=== PATIENT | male | born 1965 | race African-American/Black ===

== ENCOUNTER 2017-06-17 10:01 | Inpatient (IN) | payer MEDICAID ==
[~2017-06-17] VITALS: Ht 193 cm; Wt 122.5 kg
[~2017-06-17 10:01] MED LIST: AMLO2.5T45 PO; ASPI-1158 PO; ATOR-2 PO; BACL-141 PO; CETI10TA6 PO; FAMO20TA8 PO; FURO20TA4 PO; ISOS60TA4 PO; METO-396 PO; MIRT15TA6 PO; NITR100C PO; SPIR25TA4 PO; WARF5TAB76 PO
[2017-06-17 10:57] LABS: BASOPHILS % 0.6 % (0.0-2.0); EOSINOPHILS % 1.8 % (0.0-5.0); HEMATOCRIT. 46.1 % (42.0-52.0); HEMOGLOBIN. 15.3 g/dL (14.0-18.0); LYMPHOCYTES % 23.3 % (20.0-50.0); MEAN CORPUSCULAR VOLUME 81.6 fL (80.0-94.0); MEAN PLATELET VOLUME 8.1 fl (7.4-10.4); MONOCYTES % 7.6 % (2.0-8.0); NEUTROPHILS % 66.7 % (40.0-76.0); PLATELET 181 x1000/uL (130-400); RED BLOOD CELL COUNT 5.65 mill/uL (4.7-6.1); RED CELL DISTRIBUTION WIDTH 14.4 % (11.6-14.6)
[2017-06-17 11:02] LABS: CLARITY URINE CLEAR (CLEAR); COLOR URINE YELLOW (YELLOW); GLUCOSE URINE NEGATIVE (NEGATIVE); KETONES URINE TRACE (NEGATIVE); LEUKOCYTE ESTERASE URINE NEGATIVE (NEGATIVE); NITRITE URINE NEGATIVE (NEGATIVE); OCCULT BLOOD URINE 2+ (NEGATIVE); PROTEIN URINE NEGATIVE (NEGATIVE); SPECIFIC GRAVITY URINE 1.021 (1.005-1.030)
[2017-06-17 11:05] LABS: CHLORIDE 105 mEq/L (98-107)
[2017-06-17 11:12] LABS: CARBON DIOXIDE 24 mEq/L (21-32)
[2017-06-17 11:18] LABS: INR 3.6
[2017-06-17 11:19] LABS: TROPONIN I 0.42 ng/mL (0.00-0.04)
[2017-06-17 11:21] LABS: PARTIAL THROMBOPLASTIN TIME 75.8 sec (23.4-31.0)
[2017-06-17 11:34] LABS: *AMPHETAMINES SCREEN URINE NEGATIVE (NEGATIVE); *BARBITURATES SCREEN URINE NEGATIVE (NEGATIVE); *BENZODIAZEPINES SCREEN URINE NEGATIVE (NEGATIVE); *COCAINE SCREEN URINE NEGATIVE (NEGATIVE); CANNABINOID URINE SCREEN NEGATIVE (NEGATIVE); METHADONE URINE SCREEN NEGATIVE (NEGATIVE); OPIATES URINE SCREEN NEGATIVE (NEGATIVE); PHENCYCLIDINE URINE SCREEN NEGATIVE (NEGATIVE)
[2017-06-17] MEDS ORDERED: CLONIDINE 0.1MG TABLET PO PRN (13:30)
[2017-06-17] MEDS ORDERED: CLONIDINE 0.2MG TABLET PO PRN (13:30)
[2017-06-17] MEDS ORDERED: DOCUSATE SODIUM 100MG CAPSULE PO PRN (14:15)
[2017-06-17] MEDS ORDERED: HYDROCODONE/ACETAMINOPHEN 5/325MG TABLET PO PRN (14:15)
[2017-06-17] MEDS ORDERED: ACETAMINOPHEN 325MG TABLET PO PRN (14:15)
[2017-06-17] MEDS ORDERED: GUAIFENESIN 200MG/10ML SUGAR FREE UDC PO PRN (14:15)
[2017-06-17] MEDS ORDERED: ONDANSETRON HCL 4MG/2ML VIAL IV PRN (14:15)
[2017-06-17] MEDS: AMLODIPINE 5MG TABLET PO SCH ×2 (15:52→21:00)
[2017-06-17 15:55] VITALS: BP 107/65
[2017-06-17 16:18] VITALS: BP 119/75
[2017-06-17] MEDS ORDERED: WARF6TAB22 PO (16:32)
[2017-06-17 17:30] VITALS: BP 119/68
[2017-06-17 18:00] VITALS: BP 117/56
[2017-06-17 20:00] VITALS: BP 101/69
[2017-06-17 22:00] VITALS: BP 121/74
[2017-06-18] VITALS (12 sets, daily range): BP systolic 104–133; BP diastolic 39–90
[2017-06-18 06:52] LABS: BASOPHILS % 0.4 % (0.0-2.0); EOSINOPHILS % 1.8 % (0.0-5.0); HEMATOCRIT. 40.6 % (42.0-52.0); HEMOGLOBIN. 13.4 g/dL (14.0-18.0); LYMPHOCYTES % 20.1 % (20.0-50.0); MEAN CORPUSCULAR HEMOGLOBIN 26.8 pg (28.0-32.0); MEAN PLATELET VOLUME 8.4 fl (7.4-10.4); MONOCYTES % 9.8 % (2.0-8.0); NEUTROPHILS % 67.9 % (40.0-76.0); PLATELET 180 x1000/uL (130-400); RED BLOOD CELL COUNT 5.01 mill/uL (4.7-6.1); RED CELL DISTRIBUTION WIDTH 14.4 % (11.6-14.6)
[2017-06-18 07:22] LABS: CARBON DIOXIDE 26 mEq/L (21-32); CHLORIDE 106 mEq/L (98-107); CREATINE KINASE 149 IU/L (39-308); CREATINE KINASE MB FRACTION 3.8 ng/mL (0.5-3.6); HDL CHOLESTEROL 46 mg/dL (40-59); LDL CHOLESTEROL 61 mg/dL (5-100)
[2017-06-18] MEDS: AMLODIPINE 5MG TABLET PO SCH ×2 (08:38→21:00)
[2017-06-18] MEDS: ASPIRIN 81MG EC TABLET PO SCH (08:47)
[2017-06-18 09:47] LABS: INR 3.3; PROTHROMBIN TIME 34.3 sec (9.4-11.6)
[2017-06-19] VITALS (11 sets, daily range): BP systolic 108–132; BP diastolic 54–90
[2017-06-19 06:57] LABS: BASOPHILS % 0.5 % (0.0-2.0); EOSINOPHILS % 2.4 % (0.0-5.0); HEMATOCRIT. 40.6 % (42.0-52.0); HEMOGLOBIN. 13.4 g/dL (14.0-18.0); LYMPHOCYTES % 18.9 % (20.0-50.0); MEAN CORPUSCULAR HEMOGLOBIN 26.5 pg (28.0-32.0); MEAN CORPUSCULAR VOLUME 80.2 fL (80.0-94.0); MEAN PLATELET VOLUME 8.5 fl (7.4-10.4); NEUTROPHILS % 68.2 % (40.0-76.0); PLATELET 172 x1000/uL (130-400); RED BLOOD CELL COUNT 5.06 mill/uL (4.7-6.1); RED CELL DISTRIBUTION WIDTH 14.2 % (11.6-14.6)
[2017-06-19 06:58] LABS: INR 2.2
[2017-06-19 07:33] LABS: CARBON DIOXIDE 24 mEq/L (21-32); CHLORIDE 103 mEq/L (98-107); CREATINE KINASE 89 IU/L (39-308); CREATINE KINASE MB FRACTION 0.9 ng/mL (0.5-3.6); HDL CHOLESTEROL 45 mg/dL (40-59); LDL CHOLESTEROL 64 mg/dL (5-100)
[2017-06-19 07:58] LABS: TROPONIN I 0.56 ng/mL (0.00-0.04)
[2017-06-19] MEDS: ASPIRIN 81MG EC TABLET PO SCH ×2 (09:00→17:13)
[2017-06-19] MEDS: AMLODIPINE 5MG TABLET PO SCH ×2 (09:00→21:00)
[2017-06-19] MEDS ORDERED: REGADENOSON 0.4 MG/5 ML IV SCH (10:15)
[2017-06-19] MEDS ORDERED: REGADENOSON 0.4 MG/5 ML IV ONE (15:24)
[2017-06-19] MEDS ORDERED: WARFARIN SODIUM 3MG TABLET PO NR (18:00)
[2017-06-20] VITALS (9 sets, daily range): BP systolic 108–128; BP diastolic 70–83
[2017-06-20 08:38] LABS: INR 1.5; PROTHROMBIN TIME 15.7 sec (9.4-11.6)
[2017-06-20] MEDS: ASPIRIN 81MG EC TABLET PO SCH (08:46)
[2017-06-20 08:47] LABS: CARBON DIOXIDE 25 mEq/L (21-32); CHLORIDE 104 mEq/L (98-107)
[2017-06-20] MEDS: AMLODIPINE 5MG TABLET PO SCH (08:47)
[2017-06-20 08:48] LABS: BASOPHILS % 0.4 % (0.0-2.0); EOSINOPHILS % 2.2 % (0.0-5.0); HEMATOCRIT. 40.1 % (42.0-52.0); HEMOGLOBIN. 13.4 g/dL (14.0-18.0); LYMPHOCYTES % 19.4 % (20.0-50.0); MEAN CORPUSCULAR VOLUME 80.8 fL (80.0-94.0); MEAN PLATELET VOLUME 7.7 fl (7.4-10.4); MONOCYTES % 10.1 % (2.0-8.0); NEUTROPHILS % 67.9 % (40.0-76.0); PLATELET 178 x1000/uL (130-400); RED BLOOD CELL COUNT 4.96 mill/uL (4.7-6.1); RED CELL DISTRIBUTION WIDTH 14.2 % (11.6-14.6)
[2017-06-20] MEDS ORDERED: ENOXAPARIN 100MG/ML SYR SUBCUT SCH (09:15)
[2017-06-20] MEDS ORDERED: WARFARIN SODIUM 3MG TABLET PO SCH (18:00)
== END 2017-06-20 16:20 | DRG 190 ==
LOC: ER 11:04 → 3WST 12:03 → EDBEDREQ 12:05 → EDBEDREQTM 12:06 → ENRESERV 12:32
PROVIDERS: ADMIT Hospitalist; ATTEND Hospitalist
DX: I21.4 Non-ST elevation (NSTEMI) myocardial infarction (principal); E87.2 Acidosis; D68.59 Other primary thrombophilia; I11.0 Hypertensive heart disease with heart failure; M48.02 Spinal stenosis, cervical region; I50.9 Heart failure, unspecified; I05.9 Rheumatic mitral valve disease, unspecified; E78.00 Pure hypercholesterolemia, unspecified; K21.9 Gastro-esophageal reflux disease without esophagitis; E66.9 Obesity, unspecified; R32 Unspecified urinary incontinence; I48.91 Unspecified atrial fibrillation; I25.10 Atherosclerotic heart disease of native coronary artery without angina pectoris; R26.9 Unspecified abnormalities of gait and mobility; D72.829 Elevated white blood cell count, unspecified; Z79.899 Other long term (current) drug therapy; Z79.01 Long term (current) use of anticoagulants; Z95.2 Presence of prosthetic heart valve; Z86.73 Personal history of transient ischemic attack (TIA), and cerebral infarction without residual deficits; Z79.2 Long term (current) use of antibiotics; Z68.32 Body mass index [BMI] 32.0-32.9, adult
CPT/HCPCS: 36415; 71010; 78452; 80048; 80053; 80061; 80305; 81001; 82550; 82553; 83605; 83690; 83735; 83880; 84443; 84484; 85025; 85379; 85610; 85730; 87040; 87086; 93005; 93017; 93306; 97110; 97162; 97166; 97530; 99291; A9500; J2785; J7030